=== PATIENT | female | born 1985 | race Caucasian/White ===

== ENCOUNTER → 2019-03-22 11:00 | Outpatient (BNVA) | payer SELFPAY | PROVIDERS: Family Provider Nurse Practitioner; PCP Nurse Practitioner; Visit Provider Nurse Practitioner | DX: R00.0 Tachycardia, unspecified (principal); F41.1 Generalized anxiety disorder; F41.0 Panic disorder [episodic paroxysmal anxiety] | CPT/HCPCS: 80053; 84443 ==

== ENCOUNTER 2019-07-30 08:48 | Emergency (ER) | payer SELFPAY ==
[2019-07-30 08:53] VITALS: BP 139/101; PULSE 79; RESP 18; TEMP 36.7; O2SAT 98; BMI 40.2
--- NOTE | 2019-07-30 09:02 | W.ED.NEUROSD ---
HPI - Neuro Symptoms/Deficit General: Chief Complaint: Neuro Symptoms/Deficit Stated Complaint: VISION LOSS L EYE/L SIDE FACE NUMBNESS Time Seen by Provider: 07/30/19 09:02 History of Present Illness: HPI Narrative: 33-year-old female comes in complaining of neurologic symptoms. For the last 2 nights she has noticed that she loses vision in her left temporal field transiently comes like a half a sheet of paper moving across her visual field and then it resolves. She is also had some left facial numbness and then today some left-sided numbness she denies any trauma recently. She reports that all the symptoms have completely resolved. She not had any ear pain or rash she has had a little bit of intermittent headache but is not been persistent. She not previously had episodes like this either. Onset (ago): day(s) Location: left face History of same: No Severity: moderate Quality: numb and tingling Relieving factors: none Exacerbating factors: none Context: sudden onset Associated symptoms: Reports no associated symptoms; Deny chest pain, malaise, nausea or vomiting Treatments Prior to Arrival: none Review of Systems Const: Denies: fever(s), chills, body aches, change in appetite, fatigue or malaise ENMT: Denies: throat pain, ear or mastoid pain, nasal discharge or nasal congestion Card: Denies: chest pain, edema, dyspnea on exertion or orthopnea Resp: Denies: dyspnea, productive cough or non-productive cough GI: Denies: abdominal pain, nausea, vomiting, hematemesis, coffee ground emesis, diarrhea, constipation, bloating, hematochezia or melena : Denies: flank pain, difficulty voiding, dysuria, urinary frequency or urinary urgency Skin/Breast: Denies: rash or pruritus PFSH ED PFSH: Medical History Generalized anxiety disorder with panic attacks Tachycardia with heart rate 100-120 beats per minute Surgical History Femoral hernia of right side age 1 Family History Other Bipolar 1 disorder Stroke Social History Smoking and tobacco status: current every day smoker Smoking risk assessment/counseling performed?: Yes Alcohol intake: never Desire information about alcohol rehabilitation?: No Counseling given: No Desire information about substance/drug rehabilitation?: No Counseling given: No Adopted: No Caregiver/support person: No Lives independently: Yes Household members: spouse Housing: House Marital status: Number of children: 5 service: No Current occupational status: employed Pets and animals: Yes Pets & animals: dog(s) History of recent travel: No Current gender identity: Female Female Reproductive History: Date of last menstrual period: 02/26/19 NIH stroke score NIHSS: Level Of Consciousness - 1a: 0 Level Of Consciousness Questions - 1b: Both Correct Level Of Consciousness Commands - 1c: Both Correct Best Gaze - 2: Normal Visual Waters - 3: No Visual Loss Facial Palsy - 4: Normal Motor Arm Right - 5: No Drift Motor Arm Left - 5: No Drift Motor Leg Right - 6: No Drift Motor Leg Left - 6: No Drift Limb Ataxia - 7: Absent Sensory - 8: Normal Best Language - 9: No Aphasia Dysarthia - 10: Normal Extinction And Inattention - 11: 0 Score: Total Score: 0 Physical Exam Const: COMMON NORMALS: no acute distress GENERAL APPEARANCE: cooperative and comfortable ORIENTATION/CONSCIOUSNESS: Yes awake, Yes oriented to person, Yes oriented to place and Yes oriented to time HENMT: COMMON NORMALS: normocephalic, atraumatic, hearing grossly normal bilaterally, external ears normal, EAC's normal, TM's normal bilaterally, Normal nasal mucous membranes and turbinates present, moist oral mucous membranes and oropharynx normal HEAD & SCALP: normocephalic and atraumatic NOSE: Normal nasal mucous membranes and turbinates present EXTERNAL EAR: Yes external ears normal EXTERNAL AUDITORY CANAL: EAC's normal TYMPANIC MEMBRANE: TM's normal bilaterally Eye: COMMON NORMALS: Equal, round and reactive pupils present, EOMs intact bilaterally, conjunctivae normal and no scleral icterus CONJUNCTIVA: Yes conjunctivae normal PUPIL: Yes Equal, round and reactive pupils present Neck/C-Spine: COMMON NORMALS: full ROM, no lymphadenopathy, supple and no JVD Lymph: LYMPHATIC: no lymphadenopathy noted and no lymphedema noted Resp: COMMON NORMALS: normal respiratory effort, No retractions, No use of accessory muscles and clear to auscultation bilaterally AUSCULTATION: clear to auscultation bilaterally Cardio: COMMON NORMALS: no JVD, regular rate, regular rhythm and No murmurs present (Cardio) RATE: regular rate RHYTHM: regular rhythm GI: COMMON NORMALS: Soft to palpation and No hepatosplenomegaly present AUSCULTATION: Yes normoactive bowel sounds PALPATION: Yes Soft to palpation, No Tenderness to palpation present (GI), No Guarding due to palpation present (GI) and Yes No hepatosplenomegaly present Extremity: COMMON NORMALS: normal to inspection, capillary refill normal, no clubbing, cyanosis or edema, no calf tenderness and no pedal edema Neuro: SENSORIUM/ORIENTATION: Yes oriented to person, Yes oriented to place and Yes oriented to time Skin: COMMON NORMALS: no rashes or lesions noted GENERAL SKIN EXAM: no rashes or lesions noted Course Vital Signs: Vital signs: Vital Signs Temperature 98.1 F 07/30/19 08:53 Pulse Rate 79 07/30/19 08:53 Respiratory Rate 18 07/30/19 08:53 Blood Pressure 139/101 07/30/19 08:53 Pulse Oximetry 98 07/30/19 08:53 MDM - Neuro Symptoms/Deficit MDM Narrative: Medical decision making narrative: Initial CT there is a questionable area discussed Dr. Dickey and CTA was done. See her note no significant clinical finding vertigo and discharged home I asked her to take a aspirin. Little concerned with the numbness and tingling especially extending into the arm about having a transient ischemic attack or if she has some kind of other neurologic issue going on may take further evaluation including possible MRI and neurology consult. I discussed this with her will refer to Dr. Valencia however take baby aspirin until then if has recurrence of symptoms return Lab Data: Labs: Lab Results 07/30/19 07/30/19 07/30/19 Range/Units 09:35 09:35 09:35 WBC 11.8 H (4.0-10.0) 10^3/ uL RBC 4.75 (4.1-5.3) 10^6/u L Hgb 14.3 (11.5-15.3) g/dL Hct 43.7 (37.0-47.0) % MCV 92.0 (81-99) fL MCH 30.1 (28.0-34.0) pg MCHC 32.7 (30.0-36.0) g/dL RDW 13.3 (12.1-15.1) % Plt Count 206 (130-400) 10^3/c mm MPV 10.5 H (7.4-10.4) fL Neut % (Auto) 66.1 % Lymph % (Auto) 27.2 % [place] % (Auto) 3.8 % Eos % (Auto) 1.6 % Baso % (Auto) 0.8 % Neut # (Auto) 7.8 H (1.8-7.7) 10^3/u L Lymph # (Auto) 3.2 (0.8-4.8) 10^3/u L [place] # (Auto) 0.5 (0.2-0.9) 10^3/u L Eos # (Auto) 0.2 (0.0-0.8) 10^3/u L Baso # (Auto) 0.1 (0.0-0.1) 10^3/u L Nucleated RBC % (a uto) 0 % Nucleated RBCs # 0.0 /100WBC PT 13.00 (10.5-13.3) SECO NDS INR 0.95 (0.8-1.2) APTT 31.5 (23.9-36.7) SECO NDS Sodium 137 (136-145) mmol/L Potassium 4.2 (3.5-5.1) mmol/L Chloride 104 (98-107) mmol/L Carbon Dioxide 22 (22-29) mmol/L Anion Gap 15.2 (5-19) BUN 11 (6-20) mg/dL Creatinine 0.8 (0.5-0.9) mg/dL GFR Calculation 81.6 L (90-130) mL/min Glucose 118 H (65-115) mg/dL Calculated Osmolal ity 281 L (285-295) mOsm/k g Calcium 8.6 (8.5-10.5) mg/dL Total Bilirubin 0.2 (0.15-1.2) mg/dL AST 13 (0-32) U/L ALT 11 (0-33) U/L Alkaline Phosphata se 78 (35-105) IU/L Total Protein 6.8 (6.6-8.7) g/dL Albumin 4.3 (3.5-5.2) g/dL Globulin 2.5 (1.3-4.6) g/dL Urine Color (Yellow) Urine Appearance (CLEAR) Urine pH (5-7) Ur Specific Gravit y (1.005-1.030) Urine Protein (Negative) Urine Glucose (UA) (Normal) Urine Ketones (Negative) Urine Blood (Negative) Urine Nitrate (Negative) Urine Bilirubin (NEGATIVE) Urine Urobilinogen (Negative) mg/dL Ur Leukocyte Naty ase (Negative) Urine Opiates Scre en (Negative) ng/mL Ur Barbiturates Sc reen (Negative) ng/mL Ur Phencyclidine S crn (Negative) ng/mL Ur Amphetamines Sc reen (Negative) ng/mL U Benzodiazepines Scrn (Negative) ng/mL Urine Cocaine Scre en (Negative) ng/mL U Marijuana (THC) Screen (Negative) ng/mL 07/30/19 07/30/19 Range/Units 09:39 09:39 WBC (4.0-10.0) 10^3/ uL RBC (4.1-5.3) 10^6/u L Hgb (11.5-15.3) g/dL Hct (37.0-47.0) % MCV (81-99) fL MCH (28.0-34.0) pg MCHC (30.0-36.0) g/dL RDW (12.1-15.1) % Plt Count (130-400) 10^3/c mm MPV (7.4-10.4) fL Neut % (Auto) % Lymph % (Auto) % [place] % (Auto) % Eos % (Auto) % Baso % (Auto) % Neut # (Auto) (1.8-7.7) 10^3/u L Lymph # (Auto) (0.8-4.8) 10^3/u L [place] # (Auto) (0.2-0.9) 10^3/u L Eos # (Auto) (0.0-0.8) 10^3/u L Baso # (Auto) (0.0-0.1) 10^3/u L Nucleated RBC % (a uto) % Nucleated RBCs # /100WBC PT (10.5-13.3) SECO NDS INR (0.8-1.2) APTT (23.9-36.7) SECO NDS Sodium (136-145) mmol/L Potassium (3.5-5.1) mmol/L Chloride (98-107) mmol/L Carbon Dioxide (22-29) mmol/L Anion Gap (5-19) BUN (6-20) mg/dL Creatinine (0.5-0.9) mg/dL GFR Calculation (90-130) mL/min Glucose (65-115) mg/dL Calculated Osmolal ity (285-295) mOsm/k g Calcium (8.5-10.5) mg/dL Total Bilirubin (0.15-1.2) mg/dL AST (0-32) U/L ALT (0-33) U/L Alkaline Phosphata se (35-105) IU/L Total Protein (6.6-8.7) g/dL Albumin (3.5-5.2) g/dL Globulin (1.3-4.6) g/dL Urine Color Yellow (Yellow) Urine Appearance Clear (CLEAR) Urine pH 5.0 (5-7) Ur Specific Gravit y 1.020 (1.005-1.030) Urine Protein Neg (Negative) Urine Glucose (UA) Norm (Normal) Urine Ketones Negative (Negative) Urine Blood Neg (Negative) Urine Nitrate Negative (Negative) Urine Bilirubin Neg (NEGATIVE) Urine Urobilinogen Norm (Negative) mg/dL Ur Leukocyte Naty ase Negative (Negative) Urine Opiates Scre en Negative (Negative) ng/mL Ur Barbiturates Sc reen Negative (Negative) ng/mL Ur Phencyclidine S crn Negative (Negative) ng/mL Ur Amphetamines Sc reen Negative (Negative) ng/mL U Benzodiazepines Scrn Negative (Negative) ng/mL Urine Cocaine Scre en Negative (Negative) ng/mL U Marijuana (THC) Screen Positive H (Negative) ng/mL Discharge Plan Discharge Patient Disposition: Home, Self-Care Clinical Impression: Transient cerebral ischemia, Visual disturbance Condition: Stable Prescriptions: New aspirin 81 mg tablet,chewable 81 mg PO DAILY Qty: 90 RF: 0 No Action propranolol 80 mg tablet 80 mg PO Q12H Qty: 60 RF: 5 sertraline 100 mg tablet 100 mg PO DAILY Qty: 30 RF: 5 hydroxyzine pamoate 25 mg capsule 25 mg PO BID PRN (Reason: itching) Qty: 60 RF: 5 Discharge Orders: Discharge Order (Routine); Ordered 07/30/19 Ordered By: Luis Gustafson Referrals: Dina Valencia MD [Physician] - (Benzine visual loss intermittent facial numbness and left arm and leg numbness. Vague CT abnormalities he reports) Discharge Diet: Usual diet Discharge Activity: Increase activity as tolerated Discharge Date/Time: 07/30/19 11:42 Coding Level of Care Code ED Director Treasurer for [employer]
--- NOTE | 2019-07-30 09:10 | CT_ITS ---
WS: [id number] CT HEAD NONCONTRAST HISTORY: Symptoms of Acute Stroke loss of vision LEFT side. TECHNIQUE: Contiguous axial imaging performed through the brain in 2.5 mm imaging. Bone and soft tiss ue windows. Sagittal and coronal reformats reviewed. All CT scans at [facility] use at le ast one of these dose optimization techniques: automated exposure control; mA and/or kV adjustment pe r patient size (includes targeted exams where dose is matched to clinical indication); or iterative r econstruction. DLP: 793.31 mGy.cm COMPARISON: None available. No acute intracranial hemorrhage, midline shift or mass effect. No atrophy or prior infarcts or herniation. Ventricles: Normal size with no hydrocephalus. There is increased density along the region of the straight sinus and internal cerebral veins. Acute thrombus not excluded. No adjacent areas of infarction or hemorrhage. Paranasal sinuses: Air-fluid level and mucosal thickening in the RIGHT maxillary sinus. The remaining sinuses are clear. Mastoid air cells: Well pneumatized. Calvarium and scalp: Skull is intact with no soft tissue edema or swelling. CT/CT head wo con* [id number] IMPRESSION: 1. No acute intracranial hemorrhage. 2. Mild increased density along the internal cerebral vein and straight sinus. Cerebral vein thrombosis is a possibility. For further evaluation consider pos tcontrast CT evaluation or MR with MRV.
--- NOTE | 2019-07-30 09:10 | ECG_ITS ---
Measurements Intervals [place] Rate: 62 P: 67 ND: 153 QRS: 47 QRSD: 81 T: 45 QT: 395 QTc: 403 SINUS RHYTHM LOW QRS VOLTAGE IN PRECORDIAL LEADS [QRS DEFLECTION < 1.0 mV IN CHEST LEADS] Compared to ECG 10/11/2016 21:04:01 Low QRS voltage now present Sinus tachycardia no longer present Electronically Signed On 07-30-2019 19:34:19 CDT by Emily Hanna M.D. [email or web address]
[2019-07-30 09:41] LABS: Basophils # 0.1 10^3/uL (0.0-0.1); Basophils % 0.8 %; Eosinophils # 0.2 10^3/uL (0.0-0.8); Eosinophils % 1.6 %; Hematocrit 43.7 % (37.0-47.0); Hemoglobin 14.3 g/dL (11.5-15.3); Lymphocytes # 3.2 10^3/uL (0.8-4.8); Lymphocytes % 27.2 %; Mean Corpuscular HGB Conc 32.7 g/dL (30.0-36.0); Mean Corpuscular Hemoglobin 30.1 pg (28.0-34.0); Mean Platelet Volume 10.5 fL (7.4-10.4); Monocytes # 0.5 10^3/uL (0.2-0.9); Monocytes % 3.8 %; Neutrophils # 7.8 10^3/uL (1.8-7.7); Neutrophils % 66.1 %; Nucleated Red Blood Cells % 0 %; Platelet Count 206 10^3/cmm (130-400); Red Blood Count 4.75 10^6/uL (4.1-5.3); Red Cell Distribution Width 13.3 % (12.1-15.1); White Blood Count 11.8 10^3/uL (4.0-10.0)
--- NOTE | 2019-07-30 09:47 | CT_ITS ---
WS: [id number] CT ANGIOGRAM CEREBRAL ARTERIES HISTORY: Facial numbness, visual field loss TECHNIQUE: Postcontrast imaging through the brain. CT angiogram is performed of the cerebral arteries . During arterial injection imaging is obtained from the skull vertex to the skull base in 1.25 mm im aging. Coronal and sagittal reformats are submitted. Additional multi planar reformats of the cerebra l arteries are submitted, MIP imaging also reviewed. All CT scans at [facility] use at l east one of these dose optimization techniques: automated exposure control; mA and/or kV adjustment p er patient size (includes targeted exams where dose is matched to clinical indication); or iterative reconstruction. CONTRAST: Omnipaque 350; 95 mL IV. DLP: 645.38 mGy.cm COMPARISON: Noncontrast CT head 07/30/2019. Good enhancement of the intracranial cerebral arteries and the cerebral veins. No thrombus identified . No aneurysm. There is mild irregularity along the course of the middle cerebral arteries. No stenos is. Fibromuscular dysplasia should be considered as a possible etiology. The straight sinus is elevat ed and there is prominence of the vein of Edvin. Probably all normal appearance for this patient. The re are no filling defects or thrombus or prior infarcts. Mild ectopia of the cerebellar tonsils. Intracranial vertebral arteries: Normal with no significant atherosclerosis. Basilar artery: No significant stenosis or occlusion. No aneurysm. Intracranial Internal carotid arteries: Demonstrates no significant stenosis or plaque. Middle cerebral arteries: Normal. Anterior cerebral arteries and ACOM: Normal. Posterior cerebral arteries and PCOM's: Normal. Mastoid air cells: Normal. Paranasal sinuses: Moderate mucoperiosteal disease RIGHT maxillary sinus. Calvarium: Normal. CT/CT angio head [id number] IMPRESSION: 1. No dural venous sinus thrombosis. Normal enhancement of the internal cerebr al veins. 2. Elevated straight sinus and prominence of the vein of Edvin probably all no rmal variant for this patient. No prior infarcts or hemorrhage. 3. Very mild irregularity involving the middle cerebral arteries. Consider hari luation for possible fibromuscular dysplasia.
[2019-07-30 09:51] LABS: Add Urine Microscopic? NO; Bilirubin Urine Neg (NEGATIVE); Blood Urine Neg (Negative); Glucose Urine UA Norm (Normal); Ketones Urine Negative (Negative); Leukocyte Esterase Urine Negative (Negative); Nitrate Urine Negative (Negative); Protein Urine Neg (Negative); Urine Appearance Clear (CLEAR); Urine Color Yellow (Yellow); Urobilinogen Urine Norm (Negative)
[2019-07-30 09:55] LABS: INR 0.95 (0.8-1.2)
[2019-07-30 09:56] LABS: Partial Thromboplastin Time 31.5 SECONDS (23.9-36.7)
[2019-07-30 10:00] LABS: Alanine Aminotransferase 11 U/L (0-33); Albumin Level 4.3 g/dL (3.5-5.2); Alkaline Phosphatase 78 IU/L (35-105); Anion Gap 15.2 (5-19); Aspartate Amino Transferase 13 U/L (0-32); Blood Urea Nitrogen 11 mg/dL (6-20); Calcium 8.6 mg/dL (8.5-10.5); Carbon Dioxide 22 mmol/L (22-29); Chloride 104 mmol/L (98-107); Globulin 2.5 g/dL (1.3-4.6); Glomerular Filtration Rate 81.6 mL/min (90-130); Glucose 118 mg/dL (65-115); Osmolality Calculated 281 mOsm/kg (285-295); Potassium 4.2 mmol/L (3.5-5.1); Sodium 137 mmol/L (136-145); Total Bilirubin 0.2 mg/dL (0.15-1.2); Total Protein 6.8 g/dL (6.6-8.7)
[2019-07-30 10:01] LABS: Amphetamines Screen Urine Negative (Negative); Barbiturates Screen Urine Negative (Negative); Benzodiazepines Screen Urine Negative (Negative); Cocaine Screen Urine Negative (Negative); Opiate Screen Urine Negative (Negative); PCP Screen Urine Negative (Negative); THC Screen Urine Positive (Negative)
[2019-07-30 11:42] VITALS: BP 122/82; PULSE 70; RESP 18; O2SAT 97
--- NOTE | 2019-07-30 11:43 | PC.NURSE ---
Assessment reviewed and verified
[2019-07-30] MEDS: iohexol 350 mg/mL 100 mL Btl IV (12:12)
== END 2019-07-30 11:42 | disposition home or self-care (01) ==
PROVIDERS: Emergency Provider Family Medicine; Family Provider Nurse Practitioner; PCP Nurse Practitioner
DX: H53.9 Unspecified visual disturbance (principal); G45.9 Transient cerebral ischemic attack, unspecified; F17.210 Nicotine dependence, cigarettes, uncomplicated
CPT/HCPCS: 12345; 36415; 70450; 70496; 80053; 80306; 81003; 85025; 85610; 85730; 93005; 99282; 99284; Q9967

== ENCOUNTER → 2019-08-12 12:53 | Outpatient (BNVA) | payer SELFPAY | PROVIDERS: Family Provider Nurse Practitioner; PCP Nurse Practitioner; Referring Provider Family Medicine; Visit Provider Nurse Practitioner | DX: G43.109 Migraine with aura, not intractable, without status migrainosus (principal); I99.8 Other disorder of circulatory system; F17.210 Nicotine dependence, cigarettes, uncomplicated | CPT/HCPCS: 99204 ==

== ENCOUNTER 2019-08-14 10:49 | Outpatient (CLI) | payer SELFPAY ==
--- NOTE | 2019-08-14 11:00 | MR_ITS ---
WS: [id number] MRI HEAD WITHOUT CONTRAST TECHNIQUE: Sagittal T1, T2 axial, T2 axial FLAIR, axial and coronal T1 images, axial susceptibility w eighted imaging, axial diffusion weighted images, and coronal T2 images were obtained. CLINICAL INFORMATION: MIGRAINE WITH VISUAL AURA COMPARISON: CTA July 30, 2019 FINDINGS: No evidence of restricted diffusion to suggest acute ischemia. Ventricular system and basal cisterns are patent. No suspicious intracranial signal abnormalities. Normal robison-white differentiation. Normal posterior fossa. Normal vascular flow voids at the skull base. No extra axial fluid collections. No evidence of mass or mass effect. Mucosal thickening with retention cysts in the right maxillary sinus. Mastoid a ir cells are well aerated. No hemosiderin on the susceptibly weighted images. Normal optic chiasm and pituitary infundibulum. Te mporal lobes and hippocampal formations are normal in appearance. Cavernous sinuses and Meckel's cave normal in appearance. MR/MR head wo con* [id number] IMPRESSION: 1. No evidence of restricted diffusion to suggest acute ischemia. 2. No suspicious intracranial signal abnormalities. Normal robison-white differen tiation. 3. No hemosiderin on susceptibly weighted images. 4. Mild mucosal thickening with retention cyst right maxillary sinus.
== END 2019-08-14 10:50 | disposition home or self-care (01) ==
LOC: RADWPI 10:53
PROVIDERS: Family Provider Nurse Practitioner; PCP Nurse Practitioner; Visit Provider Nurse Practitioner
DX: G43.109 Migraine with aura, not intractable, without status migrainosus (principal); M27.40 Unspecified cyst of jaw
CPT/HCPCS: 70551

== ENCOUNTER → 2019-10-07 13:31 | Outpatient (BNVA) | payer SELFPAY | PROVIDERS: Family Provider Nurse Practitioner; PCP Nurse Practitioner; Visit Provider Nurse Practitioner Family | DX: R00.0 Tachycardia, unspecified (principal) | CPT/HCPCS: 84443 ==

== ENCOUNTER → 2020-03-02 15:48 | Outpatient (BNVA) | payer SELFPAY | PROVIDERS: Family Provider Nurse Practitioner; PCP Nurse Practitioner; Visit Provider Nurse Practitioner Family | DX: R05 Cough (principal) | CPT/HCPCS: 71046; 85025 ==

== ENCOUNTER 2020-03-18 13:17 | Outpatient (CLI) | payer SELFPAY ==
--- NOTE | 2020-03-18 13:30 | USCV_ITS ---
Belajennifer Donna Age: 34 Gender: F : 1985 Exam Date: 03/18/2020 14:02 Ordering Phys: Racheal YuanC SURTASS ANALYST-C Technologist: Shara Dash [place] [facility] [place]ication: CARDIMEGALY BP: 105 / 53 HR: 59 Rhythm: Sinus Technical Quality: Adequate MEASUREMENTS (Male / Female) Normal Values 2D ECHO LV Diastolic Diameter PLAX 4.1 cm 4.2 - 5.9 / 3.9 - 5.3 cm LV Systolic Diameter PLAX 2.6 cm LV Chamber Size 2.9 cm IVS Diastolic Thickness 0.9 cm 0.6 - 1.0 / 0.6 - 0.9 cm IVS Systolic Thickness 1.3 cm LVPW Diastolic Thickness 1.4 cm 0.6 - 1.0 / 0.6 - 0.9 cm LVPW Systolic Thickness 1.6 cm RV Chamber Size 2.0 cm LVOT Diameter 2.0 cm LV Ejection Fraction 2D Teich 67.6 % LV Ejection Fraction MOD 2C 77.5 % LV Ejection Fraction 2C AL 77.8 % LA Diameter 3.1 cm LA Width 2.6 cm LA Height 3.8 cm RA Width 2.9 cm RA Height 2.7 cm Aorta at Sinotubular Diameter 2.0 cm M-MODE LV Diastolic Diameter MM 4.4 cm 4.2 - 5.9 / 3.9 - 5.3 cm LV Systolic Diameter MM 2.5 cm LV Ejection Fraction MM Teich 74.6 % IVS Diastolic Thickness MM 0.9 cm 0.6 - 1.0 / 0.6 - 0.9 cm IVS Systolic Thickness MM 1.4 cm LVPW Diastolic Thickness MM 1.1 cm 0.6 - 1.0 / 0.6 - 0.9 cm LVPW Systolic Thickness MM 1.4 cm Aortic Annulus Diameter 2.4 cm LA Ao Ratio MM 1.5 MV E Point Septal Separation 0.6 cm DOPPLER AV Peak Velocity 123.0 cm/s LVOT Peak Velocity 112.0 cm/s AV Area Cont Eq vti 3.1 cm squared AV Area Cont Eq pk 2.9 cm squared MV Area PHT 2.9 cm squared Mitral E to A Ratio 1.5 MV E' Velocity 50.8 cm/s Mitral E to LV E' Lateral Ratio 8.7 TR Peak Velocity 214.7 cm/s TR Peak Gradient 18.4 mmHg TV Peak E Velocity 56.0 cm/s PV Peak Velocity 80.0 cm/s RV Acceleration Time 0.1 s RV Ejection Time 0.5 s RV AcT/ET 0.3 FINDINGS Left Ventricle Normal left ventricular size and systolic function, EF 72 %. No regional wall motion abnormalities. Right Ventricle The right ventricle is normal in size and function. Right Atrium Normal right atrial size. Left Atrium Normal left atrial size. Mitral Valve No gross abnormalities noted Aortic Valve No gross abnormalities noted Tricuspid Valve Trace tricuspid valve regurgitation. Pulmonic Valve Structurally normal pulmonic valve. Pericardium Normal pericardium without effusion. Aorta Normal ascending aorta dimension. CONCLUSIONS Normal left ventricular size and systolic function, EF 72 %. No regional wall motion abnormalities. Normal chamber sizes. No obvious valve abnormalities noted. Trace of tricuspid regurgitation There is no pericardial effusion. There are no intracardiac masses. No previous study is available for comparison. Dr Emily Hanna MD FACC (Electronically Signed) Final Date: 18 March 2020 15:20 S
== END 2020-03-18 13:18 | disposition home or self-care (01) ==
LOC: US 13:21
PROVIDERS: PCP Nurse Practitioner; Visit Provider Nurse Practitioner Family
DX: I07.1 Rheumatic tricuspid insufficiency (principal)
CPT/HCPCS: 93306

== ENCOUNTER 2022-08-11 20:48 | Emergency (ER) | payer MEDICAID, SELFPAY ==
[2022-08-11 20:59] VITALS: BP 126/90; PULSE 87; RESP 16; TEMP 36.6; O2SAT 99; BMI 39.4
--- NOTE | 2022-08-11 21:02 | XRR_ITS ---
PROCEDURE INFORMATION: Exam: XR Chest Exam date and time: 08/11/2022 9:06 PM Age: 37 years old Clinical indication: Pain; Chest pressure; Additional info: Chest pain TECHNIQUE: Imaging protocol: Radiologic exam of the chest. Views: 1 view. COMPARISON: CR XR chest 2V* [id number] 03/02/2020 3:48 PM FINDINGS: Lungs: Unremarkable. No consolidation. Pleural spaces: Unremarkable. No pleural effusion. No pneumothorax. Heart/Mediastinum: Unremarkable. No cardiomegaly. Bones/joints: Unremarkable. XR/XR chest 1V portable [id number] IMPRESSION: No acute findings.
--- NOTE | 2022-08-11 21:16 | ECG_ITS ---
[facility] Test Date: 2022-08-11 Pat Name: Donna Jeffrey Department: Room: Gender: Female Claims Director: : 1985 Requested By: Ramana Arrington Order Number: [id number] Ashkan MD: Moises Paez M.D. Measurements Intervals [place] Rate: 70 P: 60 SD: 162 QRS: 48 QRSD: 86 T: 42 QT: 378 QTc: 409 Interpretive Statements SINUS RHYTHM Compared to ECG 07/30/2019 09:42:35 No significant changes Electronically Signed On 08-12-2022 8:43:40 CDT by Moises Paez M.D. [id number]
[2022-08-11 21:23] VITALS: BP 115/75; PULSE 67; PULSE 72; RESP 19; O2SAT 99
--- NOTE | 2022-08-11 21:25 | ED_ITS ---
HPI - Chest Pain General: Chief Complaint: Chest Pain Stated Complaint: sharp pain under left brest Time Seen by Provider: 08/11/22 21:02 History of Present Illness: Patient presents to the ER with complaints of left-sided chest pain right underneath her left breast that radiates down her left arm. This pain has been going on intermittently x1 week. Patient is pain-free at this moment. Patient denies any factors that can make it better or make it worse. Patient is never had this pain before this last week. Patient does have a history of panic attacks and is on daily medicine for these. Review of Systems General: Reports: 10 or more systems reviewed and unremarkable except in HPI and below PFSH ED PFSH: Medical History (Updated 08/11/22 @ 22:49 by Ramana Arrington DO) Generalized anxiety disorder with panic attacks Tachycardia with heart rate 100-120 beats per minute Surgical History Femoral hernia of right side age 1 History of tubal ligation Family History Other Bipolar 1 disorder Stroke Social History Smoking and tobacco status: current every day smoker Smoking risk assessment/counseling performed?: Yes Alcohol intake: never Desire information about alcohol rehabilitation?: No Counseling given: No Substance/Drug Use: never Desire information about substance/drug rehabilitation?: No Counseling given: No Adopted: No Caregiver/support person: No Lives independently: Yes Household members: spouse Housing: House Marital status: Number of children: 5 service: No Current occupational status: employed Pets and animals: Yes Pets & animals: dog(s) Do you think of yourself as: Straight/Heterosexual Current gender identity: Female Female Reproductive History: Para: 5 Spontaneous abortions: No Physical Exam Const: COMMON NORMALS: no acute distress, average body habitus, patient oriented x3, no limitations, healthy appearing, alert and well nourished HENMT: COMMON NORMALS: normocephalic, atraumatic, hearing grossly normal bilaterally, external ears normal, Normal external nose present and moist oral mucous membranes HEAD & SCALP: normocephalic and atraumatic NOSE: Normal external nose present EXTERNAL EAR: Yes external ears normal Neck/C-Spine: COMMON NORMALS: full ROM, no lymphadenopathy, supple, no meningeal signs, no JVD and Thyroid normal THYROID: Thyroid normal Chest: COMMONS NORMALS: normal inspection of the chest and normal palpation of entire chest wall Resp: COMMON NORMALS: normal respiratory effort, No retractions, No use of accessory muscles and clear to auscultation bilaterally AUSCULTATION: clear to auscultation bilaterally Cardio: COMMON NORMALS: no JVD, regular rate, regular rhythm, S1 normal heart sound present, S2 normal heart sound present, No gallops present (Cardio), No clicks present (Cardio), No murmurs present (Cardio) and No rub (Cardio) RATE: regular rate RHYTHM: regular rhythm HEART SOUNDS: S1 normal heart sound present and S2 normal heart sound present GI: COMMON NORMALS: Normal to inspection, nondistended, normoactive bowel sounds present, Soft to palpation, non-tender, No hepatosplenomegaly present and no masses PALPATION: Yes Soft to palpation and Yes No hepatosplenomegaly present : COMMON NORMALS: Yes no CVA tenderness BLADDER/KIDNEY EXAM: Yes no CVA tenderness Back/Pelvis: COMMON NORMALS: no CVA tenderness Neuro: COMMON NORMALS: patient oriented x3 SENSORIUM/ORIENTATION: Yes alert MENINGEAL SIGNS: Yes no meningeal signs Course Vital Signs: Vital signs: Vital Signs Temperature 97.9 F 08/11/22 20:59 Pulse Rate 85 08/11/22 22:01 Respiratory Rate 21 H 08/11/22 22:01 Blood Pressure 134/80 08/11/22 22:01 Pulse Oximetry 99 08/11/22 22:01 Oxygen Delivery Me thod Room Air 08/11/22 22:01 MDM - Chest Pain Medical Decision Making Patient presents with nonreproducible left chest pain that radiates down her left arm intermittently for over the last week. Patient is not able to make this pain better or worse and is not exertional in nature. Patient did have a chest pain work-up which showed her initial EKG and troponin were benign. The rest of her lab work was uneventful. Plan discharge patient home. We will wait to get the second set of enzymes and EKG for discharge but patient will be probably discharged home to follow-up with her PCP for further evaluation and treatment. Differential Diagnosis Unlikely acute massive pulmonary embolism, acute respiratory failure, acute myoc ardial infarction, cardiac arrest or sudden cardiac Medical Records I reviewed the patient's medical records. Lab Data I reviewed the patient's lab results. 08/11/22 21:14 08/11/22 21:14 Radiology Impressions Chest X-Ray 08/11/22 21:02 IMPRESSION: No acute findings. Laboratory Results WBC 13.5 10^3/uL (4.0-10.0) H 08/11/22 21:14 RBC 4.65 10^6/uL (4.1-5.3) 08/11/22 21:14 Hgb 10.7 g/dL (11.5-15.3) L 08/11/22 21:14 Hct 35.0 % (37.0-47.0) L 08/11/22 21:14 MCV 75.3 fl (81-99) L 08/11/22 21:14 MCH 23.0 pg (28.0-34.0) L 08/11/22 21:14 MCHC 30.6 g/dL (30.0-36.0) 08/11/22 21:14 RDW 18.0 % (12.1-15.1) H 08/11/22 21:14 Plt Count 275 10^3/cmm (130-400) 08/11/22 21:14 MPV 10.3 fL (7.4-10.4) 08/11/22 21:14 Neut % (Auto) 54.1 % 08/11/22 21:14 Lymph % (Auto) 38.2 % 08/11/22 21:14 [place] % (Auto) 5.2 % 08/11/22 21:14 Eos % (Auto) 1.3 % 08/11/22 21:14 Baso % (Auto) 0.8 % 08/11/22 21:14 Neut # (Auto) 7.30 10^3/uL (1.8-7.7) 08/11/22 21:14 Lymph # (Auto) 5.2 10^3/uL (0.8-4.8) H 08/11/22 21:14 [place] # (Auto) 0.7 10^3/uL (0.2-0.9) 08/11/22 21:14 Eos # (Auto) 0.2 10^3/uL (0.0-0.8) 08/11/22 21:14 Baso # (Auto) 0.1 10^3/uL (0.0-0.1) 08/11/22 21:14 Nucleated RBC % (auto) 0 % 08/11/22 21:14 Nucleated RBCs # 0.0 /100WBC 08/11/22 21:14 PT 13.80 SECONDS (12.1-14.9) 08/11/22 21:14 INR 1.03 (0.8-1.2) 08/11/22 21:14 Sodium 137 mmol/L (136-145) 08/11/22 21:14 Potassium 3.9 mmol/L (3.5-5.1) 08/11/22 21:14 Chloride 106 mmol/L (98-107) 08/11/22 21:14 Carbon Dioxide 19 mmol/L (22-29) L 08/11/22 21:14 Anion Gap 15.9 (5-19) 08/11/22 21:14 BUN 9 mg/dL (6-20) 08/11/22 21:14 Creatinine 1.0 mg/dL (0.5-0.9) H 08/11/22 21:14 GFR Calculation 61.7 mL/min (90-130) L 08/11/22 21:14 Glucose 103 mg/dL (65-115) 08/11/22 21:14 Calculated Osmolality 283 mOsm/kg (285-295) L 08/11/22 21:14 Calcium 8.7 mg/dL (8.5-10.5) 08/11/22 21:14 Total Bilirubin 0.2 mg/dL (0.15-1.2) 08/11/22 21:14 AST 9 U/L (0-32) 08/11/22 21:14 ALT 9 U/L (0-33) 08/11/22 21:14 Alkaline Phosphatase 105 U/L (35-105) 08/11/22 21:14 Troponin T Baseline 6 ng/L (0-10) 08/11/22 21:14 Total Protein 6.6 g/dL (6.6-8.7) 08/11/22 21:14 Albumin 3.9 g/dL (3.5-5.2) 08/11/22 21:14 Globulin 2.7 g/dL (1.3-4.6) 08/11/22 21:14 EKG Data EKG 1: I personally reviewed and interpreted this EKG as follows: EKG interpretation date: 08/11/22 EKG interpretation time: 21:16 Prior EKG tracings: not available for review Interpretation: EKG showed ventricular rate of 70 beats a minute, [place] interval 162, QRS duration 86, QTc of 399, normal sinus rhythm, no ST-T wave changes Discharge Plan Discharge Patient Disposition: Home Clinical Impression: Atypical chest pain Condition: Stable Prescriptions: No Action sumatriptan succinate 100 mg tablet See Rx Instructions PO .COMPLEX Qty: 14 0RF Rx Instructions: take 1 tab at onset of headache; if no relief, may repeat 1 tab after at least 2 hrs; max = 2 tabs/24 hrs PO hydroxyzine pamoate 50 mg capsule 50 mg PO BID PRN (Reason: anxiety) 30 Days Qty: 60 5RF propranolol 80 mg tablet 80 mg PO Q12H Qty: 60 5RF sertraline 100 mg tablet 200 mg PO DAILY 30 Days Qty: 60 5RF topiramate [Topamax] 50 mg tablet 50 mg PO BID 30 Days Qty: 60 5RF Discharge Orders: Discharge ED (Routine); Ordered 08/11/22 Ordered By: Ramana Arrington Referrals: Marvin Seo MD [Primary Care Provider] - 1 week Patient Instructions: Noncardiac Chest Pain (ED) Activity Restrictions/Additional Instructions: Please follow-up with your PCP in approximately 7 to 10 days. You may benefit from further evaluation such as referral to a intraoperative neuro tech and/or cardiac stress test. If your pain worsens feel free to come back to the ER for quicker work- up. Coding Level of Care Code ED Rehabilitation Program Coordinator for [facility]
[2022-08-11 21:32] LABS: Basophils # 0.1 10^3/uL (0.0-0.1); Basophils % 0.8 %; Eosinophils # 0.2 10^3/uL (0.0-0.8); Eosinophils % 1.3 %; Hemoglobin 10.7 g/dL (11.5-15.3); Lymphocytes # 5.2 10^3/uL (0.8-4.8); Lymphocytes % 38.2 %; Mean Corpuscular HGB Conc 30.6 g/dL (30.0-36.0); Mean Corpuscular Volume 75.3 fl (81-99); Mean Platelet Volume 10.3 fL (7.4-10.4); Monocytes # 0.7 10^3/uL (0.2-0.9); Monocytes % 5.2 %; Neutrophils % 54.1 %; Nucleated Red Blood Cells % 0 %; Platelet Count 275 10^3/cmm (130-400); Red Blood Count 4.65 10^6/uL (4.1-5.3); White Blood Count 13.5 10^3/uL (4.0-10.0)
[2022-08-11 21:38] LABS: INR 1.03 (0.8-1.2)
[2022-08-11 21:44] LABS: Troponin(5th) Baseline 6 ng/L (0-10)
[2022-08-11 21:45] LABS: Alanine Aminotransferase 9 U/L (0-33); Albumin Level 3.9 g/dL (3.5-5.2); Alkaline Phosphatase 105 U/L (35-105); Anion Gap 15.9 (5-19); Aspartate Amino Transferase 9 U/L (0-32); Blood Urea Nitrogen 9 mg/dL (6-20); Calcium 8.7 mg/dL (8.5-10.5); Carbon Dioxide 19 mmol/L (22-29); Chloride 106 mmol/L (98-107); Globulin 2.7 g/dL (1.3-4.6); Glomerular Filtration Rate 61.7 mL/min (90-130); Glucose 103 mg/dL (65-115); Osmolality Calculated 283 mOsm/kg (285-295); Potassium 3.9 mmol/L (3.5-5.1); Sodium 137 mmol/L (136-145); Total Bilirubin 0.2 mg/dL (0.15-1.2); Total Protein 6.6 g/dL (6.6-8.7)
[2022-08-11 22:01] VITALS: BP 134/80; PULSE 85; RESP 21; O2SAT 99
[2022-08-11 22:07] LABS: Slide Review Slide Review Perform
[2022-08-11 23:00] VITALS: BP 120/79; PULSE 63; RESP 20; O2SAT 100
--- NOTE | 2022-08-11 23:04 | ECG_ITS ---
[facility] Test Date: 2022-08-11 Pat Name: Donna Jeffrey Department: Room: Gender: Female Documentation Clerk: : 1985 Requested By: Ramana Arrington Order Number: [id number] Ashkan MD: Moises Paez M.D. Measurements Intervals Jensen Rate: 62 P: 56 TX: 153 QRS: 59 QRSD: 90 T: 55 QT: 413 QTc: 421 Interpretive Statements SINUS RHYTHM Compared to ECG 08/11/2022 21:16:22 No significant changes Electronically Signed On 08-12-2022 8:45:40 CDT by Moises Paez M.D. [id number]
[2022-08-11 23:37] LABS: Troponin 5 2HR Delta 0 ABS# (0-10)
[2022-08-11 23:48] VITALS: BP 120/75; PULSE 81; RESP 18; TEMP 36.6; O2SAT 99
== END 2022-08-11 23:50 | disposition home or self-care (01) ==
PROVIDERS: Emergency Provider Emergency Medicine; PCP Family Medicine
DX: R07.89 Other chest pain (principal); F17.210 Nicotine dependence, cigarettes, uncomplicated
CPT/HCPCS: 71045; 80053; 84484; 85025; 85610; 93005; 99285

== ENCOUNTER 2022-08-22 21:44 | Emergency (ER) | payer MEDICAID, SELFPAY ==
[2022-08-22 21:50] VITALS: BP 126/87; PULSE 84; RESP 18; TEMP 36.6; O2SAT 98; BMI 39.4
--- NOTE | 2022-08-22 23:11 | ED_ITS ---
Documented by User: VIVIAN Fernandes 08/23/22 00:59 HPI - Abdominal Pain General: Chief Complaint: Abdominal Pain Stated Complaint: abd pain/low back pain Time Seen by Provider: 08/22/22 23:10 History of Present Illness: 37-year-old female comes in today for complaints of left side abdominal pain. Patient was seen last week and was evaluated with no abnormality seen. Patient reports some diarrhea. Patient denies any vomiting. Patient appears nontoxic. Patient appears in mild pain. Patient has a history of recurrent migraines. Associated Symptoms: Reports diarrhea; Denies fever(s) and vomiting Related Data: Date of Last Menstrual Period: 08/22/22 Review of Systems General: Reports: 10 or more systems reviewed and unremarkable except in HPI and below Const: Denies: fever(s) ENMT: Denies: throat pain Card: Denies: chest pain Resp: Denies: dyspnea GI: Reports: diarrhea; Denies: vomiting : Denies: flank pain Skin/Breast: Denies: rash PFSH ED PFSH: Medical History (Updated 08/31/22 @ 00:00 by ROSEMARY Wesley) Generalized anxiety disorder with panic attacks Tachycardia with heart rate 100-120 beats per minute Surgical History Femoral hernia of right side age 1 History of tubal ligation Family History Other Bipolar 1 disorder Stroke Social History Smoking and tobacco status: current every day smoker Smoking risk assessment/counseling performed?: Yes Alcohol intake: never Desire information about alcohol rehabilitation?: No Counseling given: No Substance/Drug Use: never Desire information about substance/drug rehabilitation?: No Counseling given: No Adopted: No Caregiver/support person: No Lives independently: Yes Household members: spouse Housing: House Marital status: Number of children: 5 service: No Current occupational status: employed Pets and animals: Yes Pets & animals: dog(s) Do you think of yourself as: Straight/Heterosexual Current gender identity: Female Female Reproductive History: Date of last menstrual period: 08/22/22 Para: 5 Spontaneous abortions: No Physical Exam Const: COMMON NORMALS: alert HENMT: COMMON NORMALS: normocephalic HEAD & SCALP: normocephalic MOUTH: Normal oral and palatal mucosa present Neck/C-Spine: COMMON NORMALS: full ROM Resp: COMMON NORMALS: normal respiratory effort and clear to auscultation bilaterally AUSCULTATION: clear to auscultation bilaterally Cardio: COMMON NORMALS: regular rate and regular rhythm RATE: regular rate RHYTHM: regular rhythm GI: COMMON NORMALS: Soft to palpation AUSCULTATION: Yes normoactive bowel sounds PALPATION: Yes Soft to palpation and Yes Tenderness to palpation pre sent (GI) Details: LUQ : COMMON NORMALS: Yes no CVA tenderness BLADDER/KIDNEY EXAM: Yes no CVA tenderness Back/Pelvis: COMMON NORMALS: no CVA tenderness Extremity: COMMON NORMALS: normal to inspection Neuro: SENSORIUM/ORIENTATION: Yes alert Skin: COMMON NORMALS: turgor normal GENERAL SKIN EXAM: turgor normal Course Vital Signs: Vital signs: Vital Signs Temperature 97.7 F 08/22/22 23:29 Pulse Rate 82 08/23/22 00:00 Respiratory Rate 16 08/23/22 00:00 Blood Pressure 133/97 08/23/22 00:00 Pulse Oximetry 100 08/23/22 00:00 Oxygen Delivery Me thod Room Air 08/23/22 00:00 MDM - Abdominal Pain Medical Decision Making 37-year-old female comes in today for complaints of left upper quadrant abdominal pain radiating to the groin. Patient appears nontoxic. Patient reports pains been going on for over a week. Patient was evaluated last week for chest pain and was ruled out for any cardiac etiology. On exam abdomen soft with some tenderness in the left upper quadrant. Normal active bowel sounds are present. Vital signs are normal. Differential diagnosis includes not limited to gastritis, colitis, renal calculi, pyelonephritis, pancreatitis. Laboratory values noted some red blood cells in the urine, patient reported that she is presently on her period. Creatinine was slightly elevated at 1 but this seems to be patient's baseline. Patient's sodium was 132. And some mild increase in white blood cell count was noted at 13. CT of the abdomen pelvis noted no acute abnormalities however incidental finding of an adrenal mass with cystic abnormalities with recommendations for follow-up. I reviewed this with Dr. Denson who agreed with plan for patient to follow-up with primary care for further evaluation and imaging. Discussed this then with patient who agreed with plan. Believe the patient's pain may be more secondary to a musculoskeletal strain which should recover in time. Patient reported understanding and agreed to plan and the importance to follow-up for further evaluation of adrenal mass. Lab Data 08/22/22 23:04 08/22/22 23:04 Labs/Radiology: Radiology Impressions Abdomen/Pelvis CT 08/22/22 23:17 IMPRESSION: 1. 4.1 cm left adrenal complex mass. This may be due to a pheochromocytoma, atypical lipid-poor myelolipoma, etc. This needs to be worked up. 2. No small bowel obstruction, abscess or free air. 3. Other chronic/incidental findings above. Laboratory Results WBC 13.3 10^3/uL (4.0-10.0) H 08/22/22 23: RBC 5.01 10^6/uL (4.1-5.3) 08/22/22 23: Hgb 11.4 g/dL (11.5-15.3) L 08/22/22 23: Hct 37.3 % (37.0-47.0) 08/22/22 23: MCV 74.5 fl (81-99) L 08/22/22 23: MCH 22.8 pg (28.0-34.0) L 08/22/22 23: MCHC 30.6 g/dL (30.0-36.0) 08/22/22 23: RDW 18.6 % (12.1-15.1) H 08/22/22 23: Plt Count 281 10^3/cmm (130-400) 08/22/22 23: MPV 10.0 fL (7.4-10.4) 08/22/22 23: Neut % (Auto) 57.8 % 08/22/22 23: Lymph % (Auto) 34.9 % 08/22/22 23: M[place]racken % (Auto) 4.9 % 08/22/22 23: Eos % (Auto) 1.4 % 08/22/22 23: Baso % (Auto) 0.7 % 08/22/22 23:04 Neut # (Auto) 7.71 10^3/uL (1.8-7.7) H 08/22/22 23:04 Lymph # (Auto) 4.7 10^3/uL (0.8-4.8) 08/22/22 23:04 [place] # (Auto) 0.7 10^3/uL (0.2-0.9) 08/22/22 23:04 Eos # (Auto) 0.2 10^3/uL (0.0-0.8) 08/22/22 23:04 Baso # (Auto) 0.1 10^3/uL (0.0-0.1) 08/22/22 23:04 Nucleated RBC % (auto) 0 % 08/22/22 23:04 Nucleated RBCs # 0.0 /100WBC 08/22/22 23:04 Sodium 132 mmol/L (136-145) L 08/22/22 23:04 Potassium 3.9 mmol/L (3.5-5.1) 08/22/22 23:04 Chloride 102 mmol/L (98-107) 08/22/22 23:04 Carbon Dioxide 20 mmol/L (22-29) L 08/22/22 23:04 Anion Gap 13.9 (5-19) 08/22/22 23:04 BUN 8 mg/dL (6-20) 08/22/22 23:04 Creatinine 1.0 mg/dL (0.5-0.9) H 08/22/22 23:04 GFR Calculation 61.7 mL/min (90-130) L 08/22/22 23:04 Glucose 94 mg/dL (65-115) 08/22/22 23:04 Calculated Osmolality 272 mOsm/kg (285-295) L 08/22/22 23:04 Calcium 9.2 mg/dL (8.5-10.5) 08/22/22 23:04 Total Bilirubin 0.2 mg/dL (0.15-1.2) 08/22/22 23:04 AST 10 U/L (0-32) 08/22/22 23:04 ALT 10 U/L (0-33) 08/22/22 23:04 Alkaline Phosphatase 110 U/L (35-105) H 08/22/22 23:04 Total Protein 7.7 g/dL (6.6-8.7) 08/22/22 23:04 Albumin 4.3 g/dL (3.5-5.2) 08/22/22 23:04 Globulin 3.4 g/dL (1.3-4.6) 08/22/22 23:04 Lipase 61 U/L (13-60) H 08/22/22 23:04 HCG, Qual Negative (Negative) 08/22/22 23:04 Urine Color Yellow (Yellow) 08/22/22 23:28 Urine Appearance Cloudy (CLEAR) A 08/22/22 23:28 Urine pH 5 (5-7) 08/22/22 23:28 Ur Specific [place] 1.030 (1.005-1.030) 08/22/22 23:28 Urine Protein 1+ (Negative) H 08/22/22 23:28 Urine Glucose (UA) Norm (Normal) 08/22/22 23: Urine Ketones 1+ (Negative) H 08/22/22 23:28 Urine Blood 3+ (Negative) H 08/22/22 23:28 Urine Nitrate Negative (Negative) 08/22/22 23:28 Urine Bilirubin 1+ (Negative) H 08/22/22 23:28 Urine Urobilinogen Neg mg/dL (Negative) 08/22/22 23:28 Ur Leukocyte Esterase Negative (Negative) 08/22/22 23:28 Urine RBC 40-50 /hpf (0-2) H 08/22/22 23:28 Urine WBC 0-4 /hpf (0-5) H 08/22/22 23:28 Ur Squamous Epith Cells 10-15 /hpf (0-5) H 08/22/22 23:28 Ur Transition Epith Cell 5-10 /hpf 08/22/22 23:28 Amorphous Sediment 1+ /hpf 08/22/22 23:28 Urine Bacteria 1+ /hpf (NONE) H 08/22/22 23:28 Urine Mucus 3+ /hpf 08/22/22 23:28 Discharge Plan Discharge Patient Disposition: Home Clinical Impression: Left flank pain, Left adrenal mass Condition: Stable Prescriptions: New ibuprofen 800 mg tablet 800 mg PO Q8H PRN (Reason: pain) Qty: 30 0RF No Action sumatriptan succinate 100 mg tablet See Rx Instructions PO .COMPLEX Qty: 14 0RF Rx Instructions: take 1 tab at onset of headache; if no relief, may repeat 1 tab after at least 2 hrs; max = 2 tabs/24 hrs PO hydroxyzine pamoate 50 mg capsule 50 mg PO BID PRN (Reason: anxiety) 30 Days Qty: 60 5RF propranolol 80 mg tablet 80 mg PO Q12H Qty: 60 5RF sertraline 100 mg tablet 200 mg PO DAILY 30 Days Qty: 60 5RF topiramate [Topamax] 50 mg tablet 50 mg PO BID 30 Days Qty: 60 5RF Discharge Orders: Discharge ED (Routine); Ordered 08/23/22 Ordered By: Sujit Whitlock Referrals: Marvin Seo MD [Primary Care Provider] - Patient Instructions: Muscle Strain (ED) Activity Restrictions/Additional Instructions: Activity as tolerated. Gentle stretching and range of motion exercises. Drink plenty of water and fluids. Use ibuprofen for pain. Follow-up with primary care for further evaluation of your adrenal mass to rule out carcinoma. Return to ER for new concerns or worsening symptoms such as high fever or blood in vomit or stool. Coding Level of Care Code ED Knitter Wire Mesh for Chg Fwd Documented by User: Sea Denson MD 09/01/22 20:37 HPI - Abdominal Pain General: Chief Complaint: Abdominal Pain Stated Complaint: abd pain/low back pain Time Seen by Provider: 08/22/22 23:10 [facility] ED PFSH: Medical History (Updated 08/31/22 @ 00:00 by ROSEMARY Wesley) Generalized anxiety disorder with panic attacks Tachycardia with heart rate 100-120 beats per minute Surgical History Femoral hernia of right side age 1 History of tubal ligation Family History Other Bipolar 1 disorder Stroke Social History Smoking and tobacco status: current every day smoker Smoking risk assessment/counseling performed?: Yes Alcohol intake: never Desire information about alcohol rehabilitation?: No Counseling given: No Substance/Drug Use: never Desire information about substance/drug rehabilitation?: No Counseling given: No Adopted: No Caregiver/support person: No Lives independently: Yes Household members: spouse Housing: House Marital status: Number of children: 5 service: No Current occupational status: employed Pets and animals: Yes Pets & animals: dog(s) Do you think of yourself as: Straight/Heterosexual Current gender identity: Female Course Vital Signs: Vital signs: Vital Signs Temperature 97.7 F 08/22/22 23:29 Pulse Rate 82 08/23/22 00:00 Respiratory Rate 16 08/23/22 00:00 Blood Pressure 133/97 08/23/22 00:00 Pulse Oximetry 100 08/23/22 00:00 Oxygen Delivery Me thod Room Air 08/23/22 00:00 MDM - Abdominal Pain Medical Decision Making 37-year-old female comes in today for complaints of left upper quadrant abdominal pain radiating to the groin. Patient appears nontoxic. Patient reports pains been going on for over a week. Patient was evaluated last week for chest pain and was ruled out for any cardiac etiology. On exam abdomen soft with some tenderness in the left upper quadrant. Normal active bowel sounds are present. Vital signs are normal. Differential diagnosis includes not limited to gastritis, colitis, renal calculi, pyelonephritis, pancreatitis. Laboratory values noted some red blood cells in the urine, patient reported that she is presently on her period. Creatinine was slightly elevated at 1 but this seems to be patient's baseline. Patient's sodium was 132. And some mild increase in white blood cell count was noted at 13. CT of the abdomen pelvis noted no acute abnormalities however incidental finding of an adrenal mass with cystic abnormalities with recommendations for follow-up. I reviewed this with Dr. Denson who agreed with plan for patient to follow-up with primary care for further evaluation and imaging. Discussed this then with patient who agreed with plan. Believe the patient's pain may be more secondary to a musculoskeletal strain which should recover in time. Patient reported understanding and agreed to plan and the importance to follow-up for further evaluation of adrenal mass. I discussed this case with VIVIAN Kim. I have reviewed documentation, labs, imaging. Sea Denson MD Emergency Medicine Lab Data 08/22/22 23:04 08/22/22 23:04 Labs/Radiology: Radiology Impressions Abdomen/Pelvis CT 08/22/22 23:17 IMPRESSION: 1. 4.1 cm left adrenal complex mass. This may be due to a pheochromocytoma, atypical lipid-poor myelolipoma, etc. This needs to be worked up. 2. No small bowel obstruction, abscess or free air. 3. Other chronic/incidental findings above. Laboratory Results WBC 13.3 10^3/uL (4.0-10.0) H 08/22/22 23:04 RBC 5.01 10^6/uL (4.1-5.3) 08/22/22 23:04 Hgb 11.4 g/dL (11.5-15.3) L 08/22/22 23:04 Hct 37.3 % (37.0-47.0) 08/22/22 23: MCV 74.5 fl (81-99) L 08/22/22 23:04 MCH 22.8 pg (28.0-34.0) L 08/22/22 23: MCHC 30.6 g/dL (30.0-36.0) 08/22/22 23:04 RDW 18.6 % (12.1-15.1) H 08/22/22 23:04 Plt Count 281 10^3/cmm (130-400) 08/22/22 23:04 MPV 10.0 fL (7.4-10.4) 08/22/22 23:04 Neut % (Auto) 57.8 % 08/22/22 23:04 Lymph % (Auto) 34.9 % 08/22/22 23:04 M[place]rack[place] % (Auto) 4.9 % 08/22/22 23:04 Eos % (Auto) 1.4 % 08/22/22 23:04 Baso % (Auto) 0.7 % 08/22/22 23:04 Neut # (Auto) 7.71 10^3/uL (1.8-7.7) H 08/22/22 23:04 Lymph # (Auto) 4.7 10^3/uL (0.8-4.8) 08/22/22 23:04 [place]rack[place] # (Auto) 0.7 10^3/uL (0.2-0.9) 08/22/22 23:04 Eos # (Auto) 0.2 10^3/uL (0.0-0.8) 08/22/22 23:04 Baso # (Auto) 0.1 10^3/uL (0.0-0.1) 08/22/22 23:04 Nucleated RBC % (auto) 0 % 08/22/22 23:04 Nucleated RBCs # 0.0 /100WBC 08/22/22 23:04 Sodium 132 mmol/L (136-145) L 08/22/22 23:04 Potassium 3.9 mmol/L (3.5-5.1) 08/22/22 23:04 Chloride 102 mmol/L (98-107) 08/22/22 23:04 Carbon Dioxide 20 mmol/L (22-29) L 08/22/22 23:04 Anion Gap 13.9 (5-19) 08/22/22 23:04 BUN 8 mg/dL (6-20) 08/22/22 23:04 Creatinine 1.0 mg/dL (0.5-0.9) H 08/22/22 23:04 GFR Calculation 61.7 mL/min (90-130) L 08/22/22 23:04 Glucose 94 mg/dL (65-115) 08/22/22 23:04 Calculated Osmolality 272 mOsm/kg (285-295) L 08/22/22 23:04 Calcium 9.2 mg/dL (8.5-10.5) 08/22/22 23:04 Total Bilirubin 0.2 mg/dL (0.15-1.2) 08/22/22 23:04 AST 10 U/L (0-32) 08/22/22 23:04 ALT 10 U/L (0-33) 08/22/22 23:04 Alkaline Phosphatase 110 U/L (35-105) H 08/22/22 23:04 Total Protein 7.7 g/dL (6.6-8.7) 08/22/22 23:04 Albumin 4.3 g/dL (3.5-5.2) 08/22/22 23:04 Globulin 3.4 g/dL (1.3-4.6) 08/22/22 23:04 Lipase 61 U/L (13-60) H 08/22/22 23:04 HCG, Qual Negative (Negative) 08/22/22 23:04 Urine Color Yellow (Yellow) 08/22/22 23:28 Urine Appearance Cloudy (CLEAR) A 08/22/22 23:28 Urine pH 5 (5-7) 08/22/22 23:28 Ur Specific [place] 1.030 (1.005-1.030) 08/22/22 23:28 Urine Protein 1+ (Negative) H 08/22/22 23:28 Urine Glucose (UA) Norm (Normal) 08/22/22 23:28 Urine Ketones 1+ (Negative) H 08/22/22 23:28 Urine Blood 3+ (Negative) H 08/22/22 23:28 Urine Nitrate Negative (Negative) 08/22/22 23:28 Urine Bilirubin 1+ (Negative) H 08/22/22 23:28 Urine Urobilinogen Neg mg/dL (Negative) 08/22/22 23:28 Ur Leukocyte Esterase Negative (Negative) 08/22/22 23:28 Urine RBC 40-50 /hpf (0-2) H 08/22/22 23:28 Urine WBC 0-4 /hpf (0-5) H 08/22/22 23:28 Ur Squamous Epith Cells 10-15 /hpf (0-5) H 08/22/22 23:28 Ur Transition Epith Cell 5-10 /hpf 08/22/22 23:28 Amorphous Sediment 1+ /hpf 08/22/22 23:28 Urine Bacteria 1+ /hpf (NONE) H 08/22/22 23:28 Urine Mucus 3+ /hpf 08/22/22 23:28 Discharge Plan Discharge Patient Disposition: Home Clinical Impression: Left flank pain, Left adrenal mass Condition: Stable Prescriptions: New ibuprofen 800 mg tablet 800 mg PO Q8H PRN (Reason: pain) Qty: 30 0RF No Action sumatriptan succinate 100 mg tablet See Rx Instructions PO .COMPLEX Qty: 14 0RF Rx Instructions: take 1 tab at onset of headache; if no relief, may repeat 1 tab after at least 2 hrs; max = 2 tabs/24 hrs PO hydroxyzine pamoate 50 mg capsule 50 mg PO BID PRN (Reason: anxiety) 30 Days Qty: 60 5RF propranolol 80 mg tablet 80 mg PO Q12H Qty: 60 5RF sertraline 100 mg tablet 200 mg PO DAILY 30 Days Qty: 60 5RF topiramate [Topamax] 50 mg tablet 50 mg PO BID 30 Days Qty: 60 5RF Discharge Orders: Discharge ED (Routine); Ordered 08/23/22 Ordered By: Sujit Whitlock Referrals: Marvin Seo MD [Primary Care Provider] - Patient Instructions: Muscle Strain (ED) Activity Restrictions/Additional Instructions: Activity as tolerated. Gentle stretching and range of motion exercises. Drink plenty of water and fluids. Use ibuprofen for pain. Follow-up with primary care for further evaluation of your adrenal mass to rule out carcinoma. Return to ER for new concerns or worsening symptoms such as high fever or blood in vomit or stool. Coding Level of Care Code ED Knitter Wire Mesh for Berkley Ro
--- NOTE | 2022-08-22 23:17 | CTR_ITS ---
PROCEDURE INFORMATION: Exam: CT Abdomen And Pelvis With Contrast Exam date and time: 08/22/2022 11:57 PM Age: 37 years old Clinical indication: Abdominal pain; Localized; Left lower quadrant (llq); Additional info: Left abd pain TECHNIQUE: Imaging protocol: Computed tomography of the abdomen and pelvis with contrast. Radiation optimization: All CT scans at this facility use at least one of these dose optimization techniques: automated exposure control; mA and/or kV adjustment per patient size (includes targeted exams where dose is matched to clinical indication); or iterative reconstruction. Contrast material: OMNI 350; Contrast volume: 100 ml; Contrast route: INTRAVENOUS (IV); REPORTING DATA: Count of CT and Cardiac NM exams in prior 12 months: This patient has received 0 known CTs and 0 known cardiac nuclear medicine studies in the 12 months prior to the current study. COMPARISON: CR (CHEST, ) 08/11/2022 9:06 PM RADIATION DOSE METRICS: Total DLP (mGy-cm): 902.6 FINDINGS: Lungs: The visualized lung bases are clear. Liver: A few minute hepatic hypodensities measure up to about 9 mm. These are too small to characterize. No enhancing mass is noted. Gallbladder and bile ducts: No calcified gallstones or biliary dilation identified. Pancreas: Unremarkable with no suspicious mass. No ductal dilation. Spleen: The spleen is not enlarged. No suspicious enhancing mass is noted. Adrenal glands: The left adrenal shows a complex mass measuring up to 41 x 36 mm. This contains some areas of cystic change or necrosis. No internal fat density is present. There is minimal right adrenal nodularity. Kidneys and ureters: No solid renal mass or hydronephrosis. Stomach and bowel: Mild sigmoid diverticulosis. No small bowel dilation. Appendix: No evidence of appendicitis. Intraperitoneal space: Unremarkable. No free air. No suspicious fluid collection. Vasculature: No AAA or acute vascular lesion identified. Lymph nodes: No enlarged lymph nodes. Urinary bladder: Unremarkable as visualized. Reproductive: Right ovarian 1.5 cm cystic lesion. Bones/joints: No acute fracture. Soft tissues: Tiny fat umbilical hernia. CT/CT abdomen pelvis w con* [id number] IMPRESSION: 1. 4.1 cm left adrenal complex mass. This may be due to a pheochromocytoma, atypical lipid-poor myelolipoma, etc. This needs to be worked up. 2. No small bowel obstruction, abscess or free air. 3. Other chronic/incidental findings above.
[2022-08-22 23:29] VITALS: BP 132/71; PULSE 66; RESP 16; TEMP 36.5; O2SAT 99
[2022-08-22 23:41] LABS: Alanine Aminotransferase 10 U/L (0-33); Albumin Level 4.3 g/dL (3.5-5.2); Alkaline Phosphatase 110 U/L (35-105); Anion Gap 13.9 (5-19); Aspartate Amino Transferase 10 U/L (0-32); Blood Urea Nitrogen 8 mg/dL (6-20); Calcium 9.2 mg/dL (8.5-10.5); Carbon Dioxide 20 mmol/L (22-29); Chloride 102 mmol/L (98-107); Globulin 3.4 g/dL (1.3-4.6); Glomerular Filtration Rate 61.7 mL/min (90-130); Glucose 94 mg/dL (65-115); Lipase 61 U/L (13-60); Osmolality Calculated 272 mOsm/kg (285-295); Potassium 3.9 mmol/L (3.5-5.1); Sodium 132 mmol/L (136-145); Total Bilirubin 0.2 mg/dL (0.15-1.2); Total Protein 7.7 g/dL (6.6-8.7)
[2022-08-22 23:49] VITALS: BP 160/97; PULSE 63; RESP 15; O2SAT 98
[2022-08-22 23:53] LABS: HCG, Serum Qual Negative (Negative)
[2022-08-23] VITALS: BP 133/97; PULSE 82; RESP 16; O2SAT 100
[2022-08-23] MEDS: iohexol 350 mg/mL 500 mL Btl (per mL) IV
[2022-08-23 00:03] LABS: Add Urine Microscopic? YES; Bilirubin Urine 1+ (Negative); Blood Urine 3+ (Negative); Glucose Urine UA Norm (Normal); Ketones Urine 1+ (Negative); Leukocyte Esterase Urine Negative (Negative); Nitrate Urine Negative (Negative); Protein Urine 1+ (Negative); Urine Appearance Cloudy (CLEAR); Urine Color Yellow (Yellow); Urobilinogen Urine Neg (Negative); pH Urine 5 (5-7)
[2022-08-23 00:05] LABS: Amorphous Sediment Urine 1+ /hpf; Bacteria Urine 1+ /hpf; Mucus Urine 3+ /hpf; RBC Urine 40-50 /hpf (0-2); WBC Urine 0-4 /hpf (0-5)
[2022-08-23 00:06] LABS: Add Urine Culture? No
[2022-08-23 00:19] LABS: Basophils # 0.1 10^3/uL (0.0-0.1); Basophils % 0.7 %; Eosinophils # 0.2 10^3/uL (0.0-0.8); Eosinophils % 1.4 %; Hematocrit 37.3 % (37.0-47.0); Hemoglobin 11.4 g/dL (11.5-15.3); Lymphocytes # 4.7 10^3/uL (0.8-4.8); Lymphocytes % 34.9 %; Mean Corpuscular HGB Conc 30.6 g/dL (30.0-36.0); Mean Corpuscular Hemoglobin 22.8 pg (28.0-34.0); Mean Corpuscular Volume 74.5 fl (81-99); Monocytes # 0.7 10^3/uL (0.2-0.9); Monocytes % 4.9 %; Neutrophils # 7.71 10^3/uL (1.8-7.7); Neutrophils % 57.8 %; Nucleated Red Blood Cells % 0 %; Platelet Count 281 10^3/cmm (130-400); Red Blood Count 5.01 10^6/uL (4.1-5.3); Red Cell Distribution Width 18.6 % (12.1-15.1); White Blood Count 13.3 10^3/uL (4.0-10.0)
[2022-08-23 00:20] LABS: Slide Review Slide Review Perform
--- NOTE | 2022-08-25 09:49 | DCPLANNER ---
visual display manager had message to schedule a follow up appointment for patient with primary care. visual display manager called patient to confirm if she needed help in scheduling that appointment. Patient stated that she had made an appointment. No needs from case management at this time.
== END 2022-08-23 01:06 | disposition home or self-care (01) ==
PROVIDERS: Emergency Medicine; Emergency Provider Nurse Practitioner Family; PCP Family Medicine
DX: E27.9 Disorder of adrenal gland, unspecified (principal); F17.210 Nicotine dependence, cigarettes, uncomplicated; R10.12 Left upper quadrant pain
CPT/HCPCS: 36415; 74177; 80053; 81001; 81003; 83690; 84703; 85025; 99285; Q9967

== ENCOUNTER 2022-09-15 14:00 | Outpatient (CLI) | payer MEDICAID, SELFPAY ==
--- NOTE | 2022-09-15 14:07 | MRR_ITS ---
PROCEDURE INFORMATION: Exam: MR Abdomen Without and With Contrast Exam date and time: 09/15/2022 2:42 PM Age: 37 years old Clinical indication: Mass, lump, or swelling; Other: Adrenal mass TECHNIQUE: Imaging protocol: Magnetic resonance imaging of the abdomen without and with contrast. Contrast material: MULTIHANCE; Contrast volume: 20 ml; Contrast route: INTRAVENOUS (IV); COMPARISON: CT abdomen pelvis w con* [id number] 08/22/2022 11:57 PM FINDINGS: Liver: Unremarkable is visualized No mass. Gallbladder and bile ducts: Unremarkable. No stones. No ductal dilation. Pancreas: Unremarkable. No ductal dilation. Spleen: Unremarkable. No splenomegaly. Adrenal glands: 4 x 3.5 cm circumscribed left adrenal mass with internal cystic component there is straightening heterogeneous enhancement following contrast administration. There is no sufficient signal dropout on the in and out of phase imaging that would be indicative of a lipid rich benign adenoma. Right adrenal gland is unremarkable. Kidneys and ureters: Unremarkable. No solid mass. No hydronephrosis. Stomach and bowel: Visualized stomach and intestines are unremarkable. Intraperitoneal space: No free fluid. Vasculature: No abdominal aortic aneurysm. Bones/joints: Unremarkable. Soft tissues: Unremarkable. MR/MR adrenals wo/w con [id number] IMPRESSION: 4.0 x 3.5 cm circumscribed left adrenal mass with internal cystic degeneration that is indeterminate but not consistent with a benign lipid rich adenoma. Consider repeat CT examination in 3 months or tissue sampling for further assessment.
== END 2022-09-15 14:01 | disposition home or self-care (01) ==
LOC: RAD 14:01
PROVIDERS: PCP Family Medicine; Visit Provider Family Medicine
DX: R19.09 Other intra-abdominal and pelvic swelling, mass and lump (principal); E27.9 Disorder of adrenal gland, unspecified
CPT/HCPCS: 74183; A9577

== ENCOUNTER 2023-03-10 10:06 | Emergency (ER) | payer MEDICAID, SELFPAY ==
[2023-03-10 10:25] VITALS: BP 134/89; PULSE 98; RESP 16; TEMP 36.7; O2SAT 100
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
[2023-03-10] MEDS: tetracaine 0.5% Op Soln 4 mL Btl 1 DROP EYE-RIGHT (13:15)
[2023-03-10] MEDS: eye irrigation 30 mL Btl EYE-RIGHT (13:15)
[2023-03-10] MEDS: fluorescein 1 mg Strip EYE-RIGHT (13:15)
[2023-03-10] MEDS: erythromycin Op Oint 1 gm 1 APPLIC EYE-RIGHT (13:22)
== END 2023-03-10 13:43 | disposition home or self-care (01) ==
PROVIDERS: Emergency Provider Physician Assistant; PCP Family Medicine
DX: S05.01XA Injury of conjunctiva and corneal abrasion without foreign body, right eye, initial encounter (principal); W20.8XXA Other cause of strike by thrown, projected or falling object, initial encounter; Z72.0 Tobacco use
CPT/HCPCS: 99283

== ENCOUNTER 2023-03-12 10:30 | Emergency (ER) | payer MEDICAID, SELFPAY ==
[2023-03-12 10:48] VITALS: BP 133/78; PULSE 99; RESP 14; TEMP 36.9; O2SAT 100; BMI 38.7
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
== END 2023-03-12 11:23 | disposition home or self-care (01) ==
PROVIDERS: Emergency Provider Internal Medicine; PCP Family Medicine
DX: S05.01XA Injury of conjunctiva and corneal abrasion without foreign body, right eye, initial encounter (principal); Z72.0 Tobacco use; W20.8XXA Other cause of strike by thrown, projected or falling object, initial encounter
CPT/HCPCS: 99281

== ENCOUNTER 2023-08-08 22:52 | Emergency (ER) | payer MEDICAID, SELFPAY ==
[2023-08-08 22:54] VITALS: BP 142/86; PULSE 97; RESP 16; TEMP 37.1; O2SAT 100; BMI 37.3
--- NOTE | 2023-08-09 00:07 | CTR_ITS ---
PROCEDURE INFORMATION: Exam: CT Head Without Contrast Exam date and time: 08/09/2023 12:31 AM Age: 38 years old Clinical indication: Pain; Headache; Additional info: Headache/weakness TECHNIQUE: Imaging protocol: Computed tomography of the head without contrast. Radiation optimization: All CT scans at this facility use at least one of these dose optimization techniques: automated exposure control; mA and/or kV adjustment per patient size (includes targeted exams where dose is matched to clinical indication); or iterative reconstruction. COMPARISON: CT head wo con* [id number] 07/30/2019 9:19 AM RADIATION DOSE METRICS: Total DLP (mGy-cm): 1100 FINDINGS: Brain: No acute intracranial hemorrhage or mass effect. No definite acute infarct by CT. MRI would be more sensitive/specific for detection, as clinically directed. Cerebral ventricles: Ventricle size is normal for age. Paranasal sinuses: Included paranasal sinuses are essentially clear. Mastoid air cells: No significant acute finding. Bones: No definite acute skull fracture. Soft tissues: No significant acute finding. CT/CT head wo con* [id number] IMPRESSION: 1. No acute intracranial hemorrhage or mass effect. 2. No definite acute infarct by CT, see above. 3. Other findings discussed above.
--- NOTE | 2023-08-09 00:09 | ED_ITS ---
Documented by User: OSMIN Arias 08/10/23 16:10 HPI - Headache General: Chief Complaint: Headache Stated Complaint: MCBRIDE, HTN Time Seen by Provider: 08/08/23 23:52 Source: patient Mode of arrival: EMS Limitations: no limitations History of Present Illness: Patient is a 38-year-old female who presents to the emergency department via EMS due to headache onset today. 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 Since having it removed, her blood pressure has been normal but states that today after noticing a headache she took her blood pressure and found it to be read 160 systolic, which is very high for her. She called the ambulance due to this. She is not on any medications at this time. She does have history of migraines, but states this feels different as she has not had relief from prescribed Topamax. She also notes that over the past couple days she has just not been feeling right and has been intermittently weak. No other neurological deficits noted. No chest pain, shortness of breath, or other symptoms at this time. MD elicited complaint: headache Pertinent past history: migraines and other (Pheochromocytoma) Onset (ago): hour(s) Onset description: suddenly Location: generalized Quality & Timing: throbbing Context: occurred at rest Associated symptoms: Deny chest pain, fever(s), lightheadedness, nausea, rash or vomiting Treatments prior to arrival: other (Topamax) Review of Systems General: Reports: 10 or more systems reviewed and unremarkable except in HPI and below Const: Denies: fever(s), chills or fatigue Eyes: Denies: change in vision ENMT: Denies: throat pain, ear or mastoid pain or nasal discharge Card: Denies: chest pain, palpitations, swelling of feet/ankles or lightheadedness Resp: Denies: dyspnea, productive cough or wheezing GI: Denies: abdominal pain, nausea, vomiting, diarrhea or constipation : Denies: flank pain, difficulty voiding, dysuria or urinary frequency Musc: Denies: neck pain, back pain or joint pain Skin/Breast: Denies: rash Neuro: Reports: headache(s) and weakness in extremities; Denies: numbness in extremities PFS ED PFSH: Medical History (Updated 08/09/23 @ 02:31 by Ramana Arrington DO) Tachycardia with heart rate 100-120 beats per minute Generalized anxiety disorder with panic attacks Surgical History History of tubal ligation Femoral hernia of right side age 1 Family History Other Bipolar 1 disorder Stroke Social History Smoking and tobacco/nicotine status: current every day tobacco/nicotine user Alcohol intake: never Substance/Drug Use: never Adopted: No Caregiver/support person: No Lives independently: Yes Household members: spouse Housing: House Marital status: Number of children: 5 service: No Current occupational status: employed Pets and animals: Yes Pets & animals: dog(s) Do you think of yourself as: Straight/Heterosexual Current gender identity: Female Female Reproductive History: Para: 5 Spontaneous abortions: No Physical Exam Const: COMMON NORMALS: no acute distress, patient oriented x3 and no limitations GENERAL APPEARANCE: cooperative, comfortable and well developed ORIENTATION/CONSCIOUSNESS: Yes awake, Yes oriented to person, Yes oriented to place and Yes oriented to time HENMT: COMMON NORMALS: normocephalic, atraumatic and hearing grossly normal bilaterally HEAD & SCALP: normocephalic and atraumatic Eye: COMMON NORMALS: Equal, round and reactive pupils present, EOMs intact bilaterally and conjunctivae normal CONJUNCTIVA: Yes conjunctivae normal PUPIL: Yes Equal, round and reactive pupils present Neck/C-Spine: COMMON NORMALS: full ROM, supple and no JVD Resp: COMMON NORMALS: normal respiratory effort, No retractions, No use of accessory muscles and clear to auscultation bilaterally AUSCULTATION: clear to auscultation bilaterally Cardio: COMMON NORMALS: no JVD, regular rate, regular rhythm, No clicks present (Cardio), No murmurs present (Cardio) and No rub (Cardio) RATE: regular rate RHYTHM: regular rhythm GI: COMMON NORMALS: Normal to inspection, nondistended, normoactive bowel sounds present, Soft to palpation and non-tender AUSCULTATION: Yes normoactive bowel sounds PALPATION: Yes Soft to palpation RECTAL EXAM: deferred Extremity: COMMON NORMALS: normal to inspection, full ROM and capillary refill normal Neuro: COMMON NORMALS: patient oriented x3, CN's II-XII intact bilaterally, moves all extremities, no focal motor deficits and no sensory deficits noted SENSORIUM/ORIENTATION: Yes oriented to person, Yes oriented to place and Yes oriented to time Psych: COMMON NORMALS: mental status grossly normal and Normal thought process present THOUGHT PROCESS: Normal thought process present Skin: COMMON NORMALS: no rashes or lesions noted GENERAL SKIN EXAM: no rashes or lesions noted Course Vital Signs: Vital signs: Vital Signs Temperature 98.8 F 08/08/23 22:54 Pulse Rate 85 08/09/23 02:10 Respiratory Rate 16 08/08/23 22:54 Blood Pressure 104/50 08/09/23 02:10 Pulse Oximetry 97 08/09/23 02:10 Oxygen Delivery Me thod Room Air 08/09/23 00:40 MDM - Headache Lab Data Radiology Impressions Head CT 08/09/23 00:07 IMPRESSION: 1. No acute intracranial hemorrhage or mass effect. 2. No definite acute infarct by CT, see above. 3. Other findings discussed above. All radiology interpretation(s) finalized by discharge Discharge Plan Discharge Patient Disposition: Home Clinical Impression: Headache Qualifiers: Headache type: unspecified Headache chronicity pattern: acute headache Intract ability: not intractable Qualified Code(s): R51.9 - Headache, unspecified Condition: Stable Discharge Orders: Discharge ED (Routine); Ordered 08/09/23 Ordered By: Ramana Arrington Referrals: Marvin Seo MD [Primary Care Provider] - 1 week Patient Instructions: Headache Activity Restrictions/Additional Instructions: Your CT scan performed through the ER come back as negative for acute changes. Please follow-up with your family practice physician for further evaluation and treatment of your headaches. 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 Documented by User: Ramana Arrington DO 08/09/23 02:32 HPI - Headache General: Chief Complaint: Headache Stated Complaint: MCBRIDE, HTN Time Seen by Provider: 08/08/23 23:52 [facility] PFS: Medical History (Updated 08/09/23 @ 02:31 by Ramana Arrington DO) Tachycardia with heart rate 100-120 beats per minute Generalized anxiety disorder with panic attacks Surgical History History of tubal ligation Femoral hernia of right side age 1 Family History Other Bipolar 1 disorder Stroke Social History Smoking and tobacco/nicotine status: current every day tobacco/nicotine user Alcohol intake: never Substance/Drug Use: never Adopted: No Caregiver/support person: No Lives independently: Yes Household members: spouse Housing: House Marital status: Number of children: 5 service: No Current occupational status: employed Pets and animals: Yes Pets & animals: dog(s) Do you think of yourself as: Straight/Heterosexual Current gender identity: Female Course Vital Signs: Vital signs: Vital Signs Temperature 98.8 F 08/08/23 22:54 Pulse Rate 85 08/09/23 02:10 Respiratory Rate 16 08/08/23 22:54 Blood Pressure 104/50 08/09/23 02:10 Pulse Oximetry 97 08/09/23 02:10 Oxygen Delivery Me thod Room Air 08/09/23 00:40 MDM - Headache Medical Decision Making Patient transferred over to my care at shift change, waiting on CT scan of the head to result. Once CT scan head resulted it is negative. Patient's headache is much improved. Patient be discharged home. Lab Data Radiology Impressions Head CT 08/09/23 00:07 IMPRESSION: 1. No acute intracranial hemorrhage or mass effect. 2. No definite acute infarct by CT, see above. 3. Other findings discussed above. Discharge Plan Discharge Patient Disposition: Home Clinical Impression: Headache Qualifiers: Headache type: unspecified Headache chronicity pattern: acute headache Intractability: not intractable Qualified Code(s): R51.9 - Headache, unspecified Condition: Stable Discharge Orders: Discharge ED (Routine); Ordered 08/09/23 Ordered By: Ramana Arrington Referrals: Marvin Seo MD [Primary Care Provider] - 1 week Patient Instructions: Headache Activity Restrictions/Additional Instructions: Your CT scan performed through the ER come back as negative for acute changes. Please follow-up with your family practice physician for further evaluation and treatment of your headaches. 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
[2023-08-09] MEDS: ketorolac 60 mg/2 mL INJ 30 MG IVP (00:23)
[2023-08-09] MEDS: dexamethasone 10 mg/mL INJ IVP (00:23)
[2023-08-09] MEDS: metoclopramide 5 mg/mL SDV 2 mL 10 MG IVP (00:23)
[2023-08-09] MEDS: sodium chloride 0.9% 1,000 ML 999 ML IV (00:24)
[2023-08-09 00:40] VITALS: BP 149/84; PULSE 88; O2SAT 99
[2023-08-09 01:56] VITALS: BP 102/51; PULSE 78; O2SAT 98
[2023-08-09 02:10] VITALS: BP 104/50; PULSE 85; O2SAT 97
== END 2023-08-09 02:40 | disposition home or self-care (01) ==
PROVIDERS: Emergency Provider Physician Assistant; PCP Family Medicine
DX: R51.9 Headache, unspecified (principal); Z72.0 Tobacco use
CPT/HCPCS: 70450; 96361; 96374; 96375; 99285; J1100; J1885; J2765; J7030